=== PATIENT | male | born 1940 | race Asian ===

== ENCOUNTER 2016-08-05 23:57 | Inpatient (IN) | payer OTHER, BC ==
[~2016-08-05] VITALS: Ht 172.7 cm; Wt 74.8 kg
[2016-08-06] VITALS (7 sets, daily range): BP systolic 91–117; BP diastolic 55–72; TEMP 97.5–98.4; Ht 172.7 cm; Wt 74.8 kg
[2016-08-06 00:57] LABS: PLATELET COUNT 131 K/uL (142-355)
[2016-08-06 01:08] LABS: SODIUM 137 mmol/L (136-145)
[2016-08-06] MEDS ORDERED: BENICAR HCT1 TA2 PO (01:50)
[2016-08-06] MEDS ORDERED: LIPITOR40 MG PO (01:50)
[2016-08-07] VITALS: BP 106/70; TEMP 97.5
[2016-08-07 04:00] VITALS: BP 98/56; TEMP 98.1
[2016-08-07 04:42] LABS: PLATELET COUNT 108 K/uL (142-355)
[2016-08-07 08:11] VITALS: BP 108/67; TEMP 98.5
[2016-08-07 11:56] VITALS: BP 108/62; TEMP 98.5
[2016-08-07 16:10] VITALS: BP 110/56; TEMP 98.7
[2016-08-07 20:00] VITALS: BP 112/68; TEMP 98
[2016-08-08] VITALS (9 sets, daily range): BP systolic 84–128; BP diastolic 58–75; TEMP 97.7–98.3
[2016-08-08 05:02] LABS: PLATELET COUNT 121 K/uL (142-355)
== END 2016-08-08 15:20 | disposition home or self-care (01) | DRG 812 ==
LOC: ED 23:57 → MED/SURG 08-06 01:35
PROVIDERS: Emergency Medicine
PROC: 30233N1 Transfusion of Nonautologous Red Blood Cells into Peripheral Vein, Percutaneous Approach (ICD-10-PCS; 2016-08-06)
PROC: 0DB68ZX Excision of Stomach, Via Natural or Artificial Opening Endoscopic, Diagnostic (ICD-10-PCS; principal; 2016-08-08)
PROC: 0DBM8ZX Excision of Descending Colon, Via Natural or Artificial Opening Endoscopic, Diagnostic (ICD-10-PCS; 2016-08-08)
PROC: 0DBN8ZX Excision of Sigmoid Colon, Via Natural or Artificial Opening Endoscopic, Diagnostic (ICD-10-PCS; 2016-08-08)
DX: D64.89 Other specified anemias (principal); R79.89 Other specified abnormal findings of blood chemistry; K29.60 Other gastritis without bleeding; D12.4 Benign neoplasm of descending colon; D12.5 Benign neoplasm of sigmoid colon; K63.5 Polyp of colon; K44.9 Diaphragmatic hernia without obstruction or gangrene; K31.7 Polyp of stomach and duodenum; K64.8 Other hemorrhoids; K57.30 Diverticulosis of large intestine without perforation or abscess without bleeding
CPT/HCPCS: 36415; 36430; 80053; 81000; 82550; 83735; 83880; 84484; 85014; 85018; 85027; 86850; 86900; 86901; 86922; 96374; 99284; J1940; J2001; J2704; J3490; P9016

== ENCOUNTER 2016-09-09 08:58 | Outpatient (CLI) | payer OTHER, BC ==
[~2016-09-09 08:58] MED LIST: BENICAR HCT1 TA2 PO; LIPITOR40 MG PO
[2016-09-09 10:00] LABS: PLATELET COUNT 147 K/uL (142-355)
[2016-09-09 10:08] LABS: POTASSIUM 3.8 mmol/L (3.6-5.2)
== END 2016-09-09 23:39 | disposition home or self-care (01) ==
LOC: LABW 08:58
PROVIDERS: Nurse Practitioner
DX: D64.9 Anemia, unspecified (principal); N28.89 Other specified disorders of kidney and ureter
CPT/HCPCS: 36415; 80048; 82607; 82728; 83540; 85027

== ENCOUNTER 2016-11-26 15:49 | Outpatient (CLI) | payer OTHER, BC | END 2016-11-26 16:50 | disposition home or self-care (01) | LOC: RAD 15:49 | DX: M25.551 Pain in right hip (principal) ==

== ENCOUNTER 2016-12-22 12:49 | Outpatient (CLI) | payer OTHER, BC | END 2016-12-22 20:00 | disposition home or self-care (01) | LOC: MRI 12:49 | DX: M25.551 Pain in right hip (principal) ==

== ENCOUNTER 2017-01-08 09:45 | Outpatient (CLI) | payer OTHER, BC | END 2017-01-08 20:00 | disposition home or self-care (01) | LOC: LABW 09:45 | DX: Z12.5 Encounter for screening for malignant neoplasm of prostate (principal); R93.6 Abnormal findings on diagnostic imaging of limbs | CPT/HCPCS: 36415; 84153 ==

== ENCOUNTER 2017-07-01 13:51 | Emergency (ER) | payer OTHER, BC ==
[~2017-07-01] VITALS: Ht 172.7 cm; Wt 60.8 kg
[2017-07-01 13:50] VITALS: TEMP 98.6
[2017-07-01 18:40] VITALS: BP 127/80
== END 2017-07-01 18:45 | disposition short-term general hospital (02) ==
LOC: ED 13:51
DX: S72.144A Nondisplaced intertrochanteric fracture of right femur, initial encounter for closed fracture (principal); S72.091A Other fracture of head and neck of right femur, initial encounter for closed fracture; S80.01XA Contusion of right knee, initial encounter; S90.01XA Contusion of right ankle, initial encounter; W18.39XA Other fall on same level, initial encounter; Y92.098 Other place in other non-institutional residence as the place of occurrence of the external cause
CPT/HCPCS: 96374; 96375; 96376; 99284; J1170; J2405

== ENCOUNTER 2017-07-01 18:52 | Outpatient (CLI) | payer OTHER, BC | END 2017-07-01 20:15 | disposition short-term general hospital (02) | LOC: AMB 18:52 | DX: S72.144A Nondisplaced intertrochanteric fracture of right femur, initial encounter for closed fracture (principal); S72.091A Other fracture of head and neck of right femur, initial encounter for closed fracture; S80.01XA Contusion of right knee, initial encounter; S90.01XA Contusion of right ankle, initial encounter; W18.39XA Other fall on same level, initial encounter; Y92.098 Other place in other non-institutional residence as the place of occurrence of the external cause | CPT/HCPCS: A0425; A0427 ==